=== PATIENT | female | born 1990 | race African-American/Black ===

== ENCOUNTER 2018-06-29 17:27 | Emergency (ER) | payer SELFPAY ==
[~2018-06-29] VITALS: Ht 162.6 cm; Wt 54.4 kg
[2018-06-29 18:32] VITALS: BP 124/82
[2018-06-29] MEDS ORDERED: NAPR-514 PO (18:59)
[2018-06-29] MEDS ORDERED: CLIN150C14 PO (18:59)
[2018-06-29] MEDS ORDERED: NAPROXEN 500 MG TABLET PO ONE (19:00)
--- NOTE | 2018-06-29 19:00 | PHYS DOC ---
Past Medical History Past Medical History: No Pertinent History Alcohol Use: None Drug Use: None Adult General Chief Complaint Chief Complaint: DENTAL PROBLEM HPI HPI Patient is a 28 year old AA female who presents to the emergency Department today with complaints of right upper dental pain located at tooth #1 for the last 2 days. Patient states she has had problems with dental pain in this location for the last 2 months. She has taken 2 courses of amoxicillin in the last 2 months for an infection, patient states that she finished her last course of amoxicillin last week. She denies any fevers, nausea, vomiting, or drainage from the tooth. Currently, she rates her pain a 10 out of 10 on the pain scale, patient has been taking 1 g of Tylenol for pain relief with no benefit. Review of Systems Review of Systems Constitutional: Denies fever or chills [] Eyes: Denies changes HENT: Denies nasal congestion or sore throat; see HPI [] GI: Denies nausea, or vomiting [] Integument: Denies rash or skin lesions [] Neurologic: Denies headache Allergies Allergies Allergies Coded Allergies Type Severity Reaction Last Updated Verified No Known Drug Allergies 06/29/18 No Physical Exam Physical Exam Constitutional: Well developed, well nourished, no acute distress, non-toxic appearance. [] HENT: Normocephalic, atraumatic, bilateral external ears normal, bilateral TMs normal, oropharynx moist, no oral exudates, nose normal; fracture of tooth #1 noted, no visible abscess of surrounding gingiva. tooth #1 TTP Eyes: conjunctiva normal, no discharge. [] Neck: Normal range of motion, no tenderness, supple, no stridor. [] Lungs & Thorax: Respirations even and unlabored, no retractions, no respiratory distress Skin: Warm, dry, no erythema, no rash. [] Neurologic: Alert and oriented X 3, no focal deficits noted. [] Psychologic: Affect normal, judgement normal, mood normal. [] Current Patient Data Vital Signs Vital Signs Date Time Temp Pulse Resp B/P (MAP) Pulse Ox O2 Delivery O2 Flow Rate FiO2 06/29/18 18:32 97.9 122 22 124/82 (96) 100 Room Air 97.9 EKG EKG [] Radiology/Procedures Radiology/Procedures [] Course & Med Decision Making Course & Med Decision Making Pertinent Labs and Imaging studies reviewed. (See chart for details) [] Dragon Disclaimer Dragon Disclaimer This electronic medical record was generated, in whole or in part, using a voice recognition dictation system. Departure Departure Impression: Primary Impression: Pain, dental Additional Impressions: Fractured tooth Infected dental caries Disposition: 01 HOME, SELF-CARE Condition: STABLE Referrals: UNKNOWN PCP NAME (PCP) Patient Instructions: Dental Pain, [id number], Tooth Fracture Additional Instructions: Fill prescriptions and use as directed. Follow up with dentist using the referral list provided. Return to the ER if symptoms worsen. Scripts Clindamycin Hcl (CLINDAMYCIN HCL) 150 Mg Capsule 3 CAP PO TID for 7 Days, #63 CAP 0 Refills Prov: SAMANTHA STEVENS APRN 06/29/18 Naproxen (NAPROXEN) 500 Mg Tablet 1 TAB PO BID PRN for PAIN for 10 Days, #20 TAB 0 Refills Prov: SAMANTHA STEVENS APRN 06/29/18 Problem Qualifiers Additional Impressions: Fractured tooth Encounter type: initial encounter SAMANTHA STEVENS APRN Jun 29, 2018 18:59
== END 2018-06-29 19:32 | disposition home or self-care (01) ==
LOC: ER 17:27
DX: S02.5XXA Fracture of tooth (traumatic), initial encounter for closed fracture (principal); K02.9 Dental caries, unspecified; X58.XXXA Exposure to other specified factors, initial encounter; Y93.89 Activity, other specified; Y92.89 Other specified places as the place of occurrence of the external cause; Y99.8 Other external cause status
CPT/HCPCS: 99283